=== PATIENT | female | born 1990 | race Caucasian/White ===

== ENCOUNTER 2016-05-14 11:50 | Emergency (ER) | payer OTHER ==
[2016-05-14 12:49] VITALS: BP 128/56
== END 2016-05-14 14:44 | disposition left against medical advice (07) ==
LOC: ED 11:50
DX: Z53.21 Procedure and treatment not carried out due to patient leaving prior to being seen by health care provider (principal)

== ENCOUNTER 2016-05-15 13:13 | Emergency (ER) | payer OTHER ==
[2016-05-15 17:45] LABS: BASOPHIL % 0.6 % (0-2); PLATELET COUNT 273 x10^3mcL (130-400); RED CELL DISTRIBUTION WIDTH 13.2 % (11.5-14.5)
[2016-05-15 19:10] VITALS: BP 119/54
== END 2016-05-15 19:10 | disposition home or self-care (01) ==
LOC: ED 13:13
PROVIDERS: Emergency Medicine
DX: K64.8 Other hemorrhoids (principal)

== ENCOUNTER 2017-03-30 23:38 | Emergency (ER) | payer OTHER ==
[~2017-03-30] VITALS: Ht 160 cm; Wt 67.6 kg
[2017-03-30 23:49] VITALS: Ht 160 cm; Wt 67.6 kg
[2017-03-31 05:40] VITALS: BP 130/78
== END 2017-03-31 05:40 | disposition home or self-care (01) ==
LOC: ED 23:38
DX: S31.119A Laceration without foreign body of abdominal wall, unspecified quadrant without penetration into peritoneal cavity, initial encounter (principal); X58.XXXA Exposure to other specified factors, initial encounter; Y93.89 Activity, other specified; Y99.8 Other external cause status; Y92.89 Other specified places as the place of occurrence of the external cause
CPT/HCPCS: J2001

== ENCOUNTER 2019-01-11 00:58 | Emergency (ER) | payer OTHER ==
[~2019-01-11] VITALS: Ht 160 cm; Wt 72.6 kg
[2019-01-11 00:59] VITALS: BP 137/62; Ht 160 cm; Wt 72.6 kg
== END 2019-01-11 01:31 | disposition other institution (70) ==
LOC: ED 00:58
DX: Z02.89 Encounter for other administrative examinations (principal)